=== PATIENT | male | born 1950 ===

== ENCOUNTER 2019-03-11 15:30 | Inpatient (IN) | payer MEDICARE ==
[~2019-03-11] VITALS: Ht 170.2 cm; Wt 68.0 kg
[2019-03-11 17:10] VITALS: BP 124/79
[2019-03-11] MEDS ORDERED: DEXTROSE 50%-WATER 25 GM/50 ML SYRINGE IVP PRN (17:30)
[2019-03-11] MEDS ORDERED: GLUCAGON,HUMAN RECOMBINANT 1 MG VIAL SQ PRN (18:30)
[2019-03-11] MEDS ORDERED: MELATONIN 3 MG TABLET PO PRN (18:30)
[2019-03-11] MEDS ORDERED: PNEUMOCOCCAL VACCINE POLYVALENT 0.5 ML VIAL [PPSV23] IM ONE (20:45)
[2019-03-11 21:00] VITALS: BP 140/75
[2019-03-11] MEDS: PANTOPRAZOLE SODIUM 40 MG DR TABLET PO SCH (21:06)
[2019-03-11] MEDS: DOCUSATE SODIUM 100 MG CAPSULE PO SCH (21:06)
[2019-03-11] MEDS: SENNA 187 MG TABLET PO SCH (21:06)
[2019-03-11] MEDS: LevETIRAcetam 500 MG TABLET PO SCH (21:06)
[2019-03-11] MEDS: TraMADol HCL 50 MG TABLET PO PRN (21:06)
[2019-03-11] MEDS: INSULIN GLARGINE,HUM.REC.ANLOG 100 UNITS/ML SQ SCH (21:22)
[2019-03-11] MEDS: ENOXAPARIN SODIUM 80 MG/0.8 ML PF SYRINGE SQ SCH (21:23)
[2019-03-11] MEDS: METOPROLOL TARTRATE 50 MG TABLET PO SCH (21:23)
[2019-03-11 22:26] LABS: GLUCOMETER DEV NAME(LOC) 2WR.2; GLUCOSE,POINT OF CARE 125 MG/DL (70-110)
[2019-03-11 23:43] LABS: APPEARANCE,URINE CLOUDY (CLEAR); BILIRUBIN,URINE NEGATIVE (NEGATIVE); GLUCOSE, URINE (UA) NEGATIVE (NEGATIVE); KETONES,URINE NEGATIVE (NEGATIVE); LEUKOCYTE ESTERASE ,URINE MODERATE (NEGATIVE); NITRATE,URINE POSITIVE (NEGATIVE); OCCULT BLOOD,URINE TRACE (NEGATIVE); PH,URINE 5.5 (5.0-8.0); PROTEIN,URINE NEGATIVE (NEGATIVE); UROBILINOGEN,URINE 0.2 mg/dL (<=1.0)
[2019-03-11 23:58] LABS: BACTERIA,URINE Moderate /HPF (None Seen); RBC,URINE 0-2 /HPF (0-2); SQUAMOUS EPITHELIAL CELL,UR None Seen /LPF (None Seen); WBC,URINE 26-50 /HPF (0-5)
[2019-03-12 04:30] VITALS: BP 111/69
[2019-03-12 05:37] LABS: GLUCOMETER DEV NAME(LOC) 2WR.1B; GLUCOSE,POINT OF CARE 110 MG/DL (70-110)
[2019-03-12 06:36] LABS: GLUCOMETER DEV NAME(LOC) 2WR.1B; GLUCOSE,POINT OF CARE 73 MG/DL (70-110)
[2019-03-12 07:13] LABS: BASOPHILS % (AUTO) 1.3 % (0.0-2.0); EOSINOPHILS % (AUTO) 1.5 % (1.0-6.0); HEMATOCRIT 31.4 % (41-53); HEMOGLOBIN 10.4 g/dL (13.5-17.5); LYMPHOCYTES # (AUTO) 2.7 K/uL (1.0-4.8); LYMPHOCYTES % (AUTO) 33.6 % (22.0-44.0); MEAN CORPUSCULAR HEMOGLOBIN 30.9 pg (26.0-34.0); MEAN CORPUSCULAR VOLUME 94 fL (80-100); MONOCYTES # (AUTO) 0.8 K/uL (0.1-1.0); MONOCYTES % (AUTO) 9.2 % (2.0-9.0); NEUTROPHILS # (AUTO) 4.4 K/uL (1.8-7.7); NEUTROPHILS % (AUTO) 54.4 % (40.0-70.0); PLATELET COUNT (AUTO) 409 K/uL (150-450); RED BLOOD CELL COUNT(AUTO) 3.36 MIL/uL (4.50-5.90); RED CELL DISTRIBUTION WIDTH 15.5 % (11.5-14.5)
[2019-03-12 07:36] LABS: ALBUMIN 2.4 g/dL (3.4-5.0); BILIRUBIN,TOTAL 0.6 mg/dL (0.1-1.0); CALCIUM, TOTAL 9.6 mg/dL (8.8-10.5); CREATININE 1.46 mg/dL (0.60-1.30); POTASSIUM 4.2 mmol/L (3.5-5.1); TOTAL PROTEIN, SERUM 7.5 g/dL (6.4-8.2)
[2019-03-12] MEDS: ACETAMINOPHEN 325 MG TABLET PO PRN (07:46)
[2019-03-12 08:05] VITALS: BP 130/74
[2019-03-12] MEDS: ASPIRIN 81 MG EC TABLET PO SCH (09:08)
[2019-03-12] MEDS: ENOXAPARIN SODIUM 80 MG/0.8 ML PF SYRINGE SQ SCH ×2 (09:08→21:03)
[2019-03-12] MEDS: LevETIRAcetam 500 MG TABLET PO SCH ×2 (09:08→21:02)
[2019-03-12] MEDS: AmLODIPine BESYLATE 10 MG TABLET PO SCH (09:09)
[2019-03-12] MEDS: METOPROLOL TARTRATE 50 MG TABLET PO SCH ×2 (09:09→21:02)
[2019-03-12] MEDS: DOCUSATE SODIUM 100 MG CAPSULE PO SCH ×2 (09:09→21:02)
[2019-03-12] MEDS ORDERED: ENOX60DI8 SQ (10:06)
[2019-03-12] MEDS ORDERED: INSU100V SQ (10:06)
[2019-03-12] MEDS ORDERED: LEVE500T8 PO (10:06)
[2019-03-12] MEDS ORDERED: PANT40TA25 PO (10:06)
[2019-03-12] MEDS ORDERED: AMLO10TA7 PO (10:06)
[2019-03-12] MEDS ORDERED: METO50 PO (10:06)
[2019-03-12 10:10] LABS: HEMOGLOBIN A1C 6.4 % (4.5-6.2)
[2019-03-12] MEDS: TraMADol HCL 50 MG TABLET PO PRN (13:45)
[2019-03-12] MEDS ORDERED: ChlorproMAZINE HCL 25 MG TABLET PO PRN (15:30)
[2019-03-12] MEDS ORDERED: HYDROCODONE/ACETAMINOPHEN 5-325 MG TABLET PO PRN (15:45)
[2019-03-12 15:56] VITALS: BP 112/68
[2019-03-12] MEDS: TraMADol HCL 50 MG TABLET PO SCH ×2 (16:00→21:03)
[2019-03-12] MEDS: HYDROCODONE/ACETAMINOPHEN 10-325 MG TABLET PO PRN (16:16)
[2019-03-12] MEDS: SENNA 187 MG TABLET PO SCH (21:02)
[2019-03-12] MEDS: TAMSULOSIN HCL 0.4 MG CAPSULE PO SCH (21:02)
[2019-03-12] MEDS: BETHANECHOL CHLORIDE 25 MG TABLET PO SCH (21:03)
[2019-03-12] MEDS: PANTOPRAZOLE SODIUM 40 MG DR TABLET PO SCH (21:03)
[2019-03-12 21:04] VITALS: BP 106/65
[2019-03-12] MEDS: INSULIN GLARGINE,HUM.REC.ANLOG 100 UNITS/ML SQ SCH (21:23)
[2019-03-13] VITALS: BP 116/68
[2019-03-13 02:21] LABS: GLUCOMETER DEV NAME(LOC) 2WR.2; GLUCOSE,POINT OF CARE 188 MG/DL (70-110)
[2019-03-13 02:21] LABS: GLUCOMETER DEV NAME(LOC) 2WR.2; GLUCOSE,POINT OF CARE 109 MG/DL (70-110)
[2019-03-13 05:20] LABS: GLUCOMETER DEV NAME(LOC) 2WR.1B; GLUCOSE,POINT OF CARE 88 MG/DL (70-110)
[2019-03-13 06:41] LABS: GLUCOMETER DEV NAME(LOC) 2WR.2; GLUCOSE,POINT OF CARE 78 MG/DL (70-110)
[2019-03-13] MEDS: ENOXAPARIN SODIUM 80 MG/0.8 ML PF SYRINGE SQ SCH ×2 (08:39→21:03)
[2019-03-13 08:40] VITALS: BP 110/68
[2019-03-13] MEDS: AmLODIPine BESYLATE 10 MG TABLET PO SCH (08:40)
[2019-03-13] MEDS: ASPIRIN 81 MG EC TABLET PO SCH (08:41)
[2019-03-13] MEDS: BETHANECHOL CHLORIDE 25 MG TABLET PO SCH ×2 (08:41→20:49)
[2019-03-13] MEDS: DOCUSATE SODIUM 100 MG CAPSULE PO SCH ×2 (08:41→20:49)
[2019-03-13] MEDS: TraMADol HCL 50 MG TABLET PO SCH ×3 (08:41→20:50)
[2019-03-13] MEDS: LevETIRAcetam 500 MG TABLET PO SCH ×2 (08:41→20:49)
[2019-03-13] MEDS: METOPROLOL TARTRATE 50 MG TABLET PO SCH ×2 (08:42→20:50)
[2019-03-13] MEDS: HYDROCODONE/ACETAMINOPHEN 10-325 MG TABLET PO PRN (14:23)
[2019-03-13] MEDS ORDERED: CefTRIAXone 1 GM/DEXTROSE 50 ML IV SCH (15:00)
[2019-03-13 15:30] VITALS: BP 110/68
[2019-03-13] MEDS ORDERED: SODIUM CHLORIDE 0.9% 100 ML ONE (16:31)
[2019-03-13] MEDS: PANTOPRAZOLE SODIUM 40 MG DR TABLET PO SCH (20:49)
[2019-03-13] MEDS: TAMSULOSIN HCL 0.4 MG CAPSULE PO SCH (20:49)
[2019-03-13] MEDS: SENNA 187 MG TABLET PO SCH (20:50)
[2019-03-13] MEDS: INSULIN GLARGINE,HUM.REC.ANLOG 100 UNITS/ML SQ SCH (21:06)
[2019-03-13] MEDS: INSULIN LISPRO 100 UNITS/ML SQ PRN (21:07)
[2019-03-13 23:56] VITALS: BP 99/61
[2019-03-14 04:30] VITALS: BP 110/62
[2019-03-14 05:27] LABS: GLUCOMETER DEV NAME(LOC) 2WR.1B; GLUCOSE,POINT OF CARE 179 MG/DL (70-110)
[2019-03-14 05:27] LABS: GLUCOMETER DEV NAME(LOC) 2WR.1B; GLUCOSE,POINT OF CARE 116 MG/DL (70-110)
[2019-03-14 05:27] LABS: GLUCOMETER DEV NAME(LOC) 2WR.1B; GLUCOSE,POINT OF CARE 113 MG/DL (70-110)
[2019-03-14 08:10] VITALS: BP 115/66
[2019-03-14] MEDS: LevETIRAcetam 500 MG TABLET PO SCH ×2 (08:15→21:13)
[2019-03-14] MEDS: MULTIVITAMINS WITH MINERALS, THERAPEUTIC TABLET PO SCH (08:15)
[2019-03-14] MEDS: TraMADol HCL 50 MG TABLET PO SCH (08:16)
[2019-03-14] MEDS: DOCUSATE SODIUM 100 MG CAPSULE PO SCH ×2 (08:16→21:13)
[2019-03-14] MEDS: ASPIRIN 81 MG EC TABLET PO SCH (08:16)
[2019-03-14] MEDS: AmLODIPine BESYLATE 10 MG TABLET PO SCH (08:16)
[2019-03-14] MEDS: METOPROLOL TARTRATE 50 MG TABLET PO SCH ×2 (08:16→21:13)
[2019-03-14] MEDS: BETHANECHOL CHLORIDE 25 MG TABLET PO SCH ×2 (08:17→21:17)
[2019-03-14] MEDS: ENOXAPARIN SODIUM 80 MG/0.8 ML PF SYRINGE SQ SCH (08:17)
[2019-03-14] MEDS: 0.9% SODIUM CHLORIDE 10 ML SYRINGE IVP SCH ×2 (08:33→15:50)
[2019-03-14] MEDS: HYDROCODONE/ACETAMINOPHEN 10-325 MG TABLET PO PRN (10:35)
[2019-03-14] MEDS: ACETAMINOPHEN 325 MG TABLET PO PRN (13:44)
[2019-03-14] MEDS: ACETAMINOPHEN 325 MG TABLET PO SCH ×2 (15:49→21:13)
[2019-03-14] MEDS: CefoTEtan DISOD 2 GM/DEXTROSE 50 ML IV SCH (15:50)
[2019-03-14 17:18] VITALS: BP 112/69
[2019-03-14 19:25] LABS: GLUCOMETER DEV NAME(LOC) 2WR.2; GLUCOSE,POINT OF CARE 98 MG/DL (70-110)
[2019-03-14 19:25] LABS: GLUCOMETER DEV NAME(LOC) 2WR.2; GLUCOSE,POINT OF CARE 85 MG/DL (70-110)
[2019-03-14 19:25] LABS: GLUCOMETER DEV NAME(LOC) 2WR.2; GLUCOSE,POINT OF CARE 129 MG/DL (70-110)
[2019-03-14] MEDS ORDERED: ROSUVASTATIN CALCIUM 10 MG TABLET PO SCH (21:00)
[2019-03-14] MEDS: SENNA 187 MG TABLET PO SCH (21:13)
[2019-03-14] MEDS: PANTOPRAZOLE SODIUM 40 MG DR TABLET PO SCH (21:13)
[2019-03-14] MEDS: TAMSULOSIN HCL 0.4 MG CAPSULE PO SCH (21:13)
[2019-03-14] MEDS: APIXABAN 5 MG TABLET PO SCH (21:14)
[2019-03-14] MEDS: INSULIN LISPRO 100 UNITS/ML SQ PRN (21:24)
[2019-03-14] MEDS: INSULIN GLARGINE,HUM.REC.ANLOG 100 UNITS/ML SQ SCH (21:25)
[2019-03-15] VITALS: BP 107/56
[2019-03-15 05:51] LABS: GLUCOMETER DEV NAME(LOC) 2WR.1B; GLUCOSE,POINT OF CARE 166 MG/DL (70-110)
[2019-03-15 06:31] LABS: GLUCOMETER DEV NAME(LOC) 2WR.2; GLUCOSE,POINT OF CARE 68 MG/DL (70-110)
[2019-03-15 07:28] LABS: % IRON SATURATION 13.3 % (30-44)
[2019-03-15 07:30] VITALS: BP 120/72
[2019-03-15 07:40] LABS: ALBUMIN 2.5 g/dL (3.4-5.0); BILIRUBIN,TOTAL 0.5 mg/dL (0.1-1.0); CALCIUM, TOTAL 9.2 mg/dL (8.8-10.5); CHOL/HDL RATIO 6.4 (4.2-7.3); CREATININE 1.93 mg/dL (0.60-1.30); POTASSIUM 4.1 mmol/L (3.5-5.1); TOTAL PROTEIN, SERUM 7.4 g/dL (6.4-8.2)
[2019-03-15] MEDS: MULTIVITAMINS WITH MINERALS, THERAPEUTIC TABLET PO SCH (07:47)
[2019-03-15] MEDS: APIXABAN 5 MG TABLET PO SCH (07:47)
[2019-03-15] MEDS: DOCUSATE SODIUM 100 MG CAPSULE PO SCH ×2 (07:47→20:22)
[2019-03-15] MEDS: ACETAMINOPHEN 325 MG TABLET PO SCH ×3 (07:47→20:23)
[2019-03-15] MEDS: METOPROLOL TARTRATE 50 MG TABLET PO SCH ×2 (07:47→20:23)
[2019-03-15] MEDS: AmLODIPine BESYLATE 10 MG TABLET PO SCH (07:47)
[2019-03-15] MEDS: BETHANECHOL CHLORIDE 25 MG TABLET PO SCH ×2 (07:47→20:22)
[2019-03-15] MEDS: LevETIRAcetam 500 MG TABLET PO SCH ×2 (07:47→20:22)
[2019-03-15] MEDS: ASPIRIN 81 MG EC TABLET PO SCH (07:47)
[2019-03-15] MEDS: 0.9% SODIUM CHLORIDE 10 ML SYRINGE IVP SCH ×3 (07:48→15:27)
[2019-03-15] MEDS ORDERED: ENOX80DI9 SQ (11:29)
[2019-03-15] MEDS: FERROUS SULFATE 325 MG EC TABLET PO SCH (14:56)
[2019-03-15] MEDS: CefoTEtan DISOD 2 GM/DEXTROSE 50 ML IV SCH (15:26)
[2019-03-15 16:00] VITALS: BP 134/77
[2019-03-15] MEDS: DOCUSATE SODIUM 283 MG/5 ML MINI-ENEMA PR SCH (16:37)
[2019-03-15 16:47] LABS: GLUCOMETER DEV NAME(LOC) 2WR.2; GLUCOSE,POINT OF CARE 82 MG/DL (70-110)
[2019-03-15 16:47] LABS: GLUCOMETER DEV NAME(LOC) 2WR.2; GLUCOSE,POINT OF CARE 100 MG/DL (70-110)
[2019-03-15] MEDS: FINASTERIDE 5 MG TABLET PO SCH (18:17)
[2019-03-15] MEDS: INSULIN LISPRO 100 UNITS/ML SQ PRN ×2 (18:21→20:58)
[2019-03-15 18:26] LABS: GLUCOMETER DEV NAME(LOC) 2WR.1B; GLUCOSE,POINT OF CARE 146 MG/DL (70-110)
[2019-03-15] MEDS: PANTOPRAZOLE SODIUM 40 MG DR TABLET PO SCH (20:21)
[2019-03-15] MEDS: APIXABAN 2.5 MG TABLET PO SCH (20:22)
[2019-03-15] MEDS: TAMSULOSIN HCL 0.4 MG CAPSULE PO SCH (20:22)
[2019-03-15] MEDS: SENNA 187 MG TABLET PO SCH (20:22)
[2019-03-15] MEDS: ROSUVASTATIN CALCIUM 10 MG TABLET PO SCH (20:23)
[2019-03-15 20:46] LABS: GLUCOMETER DEV NAME(LOC) 2WR.2; GLUCOSE,POINT OF CARE 164 MG/DL (70-110)
[2019-03-15] MEDS: INSULIN GLARGINE,HUM.REC.ANLOG 100 UNITS/ML SQ SCH (21:01)
[2019-03-16 00:15] VITALS: BP 127/74
[2019-03-16] MEDS: 0.9% SODIUM CHLORIDE 10 ML SYRINGE IVP SCH ×4 (04:08→23:40)
[2019-03-16 05:37] LABS: APPEARANCE,URINE CLOUDY (CLEAR); BILIRUBIN,URINE NEGATIVE (NEGATIVE); GLUCOSE, URINE (UA) NEGATIVE (NEGATIVE); KETONES,URINE NEGATIVE (NEGATIVE); LEUKOCYTE ESTERASE ,URINE SMALL (NEGATIVE); NITRATE,URINE NEGATIVE (NEGATIVE); OCCULT BLOOD,URINE NEGATIVE (NEGATIVE); PH,URINE 5.5 (5.0-8.0); PROTEIN,URINE NEGATIVE (NEGATIVE); UROBILINOGEN,URINE 0.2 mg/dL (<=1.0)
[2019-03-16 05:38] LABS: BACTERIA,URINE None Seen /HPF (None Seen); RBC,URINE 0-2 /HPF (0-2)
[2019-03-16 05:39] LABS: SQUAMOUS EPITHELIAL CELL,UR Rare /LPF (None Seen)
[2019-03-16 06:11] LABS: GLUCOMETER DEV NAME(LOC) 2WR.2; GLUCOSE,POINT OF CARE 107 MG/DL (70-110)
[2019-03-16 06:34] LABS: ALBUMIN 2.4 g/dL (3.4-5.0); BILIRUBIN,TOTAL 0.4 mg/dL (0.1-1.0); CALCIUM, TOTAL 9.4 mg/dL (8.8-10.5); CREATININE 1.7 mg/dL (0.60-1.30); TOTAL PROTEIN, SERUM 7.5 g/dL (6.4-8.2)
[2019-03-16 07:30] VITALS: BP 130/73
[2019-03-16] MEDS: FERROUS SULFATE 325 MG EC TABLET PO SCH (07:31)
[2019-03-16] MEDS: ASPIRIN 81 MG EC TABLET PO SCH (07:32)
[2019-03-16] MEDS: DOCUSATE SODIUM 100 MG CAPSULE PO SCH ×2 (07:48→20:59)
[2019-03-16] MEDS: BETHANECHOL CHLORIDE 25 MG TABLET PO SCH ×2 (07:49→20:59)
[2019-03-16] MEDS: ACETAMINOPHEN 325 MG TABLET PO SCH ×3 (07:49→20:59)
[2019-03-16] MEDS: MULTIVITAMINS WITH MINERALS, THERAPEUTIC TABLET PO SCH (07:49)
[2019-03-16] MEDS: METOPROLOL TARTRATE 50 MG TABLET PO SCH ×2 (07:49→20:59)
[2019-03-16] MEDS: APIXABAN 2.5 MG TABLET PO SCH ×2 (07:49→20:59)
[2019-03-16] MEDS: AmLODIPine BESYLATE 10 MG TABLET PO SCH (07:49)
[2019-03-16] MEDS: LevETIRAcetam 500 MG TABLET PO SCH ×2 (07:49→20:59)
[2019-03-16] MEDS: FINASTERIDE 5 MG TABLET PO SCH (07:49)
[2019-03-16] MEDS: INSULIN LISPRO 100 UNITS/ML SQ PRN ×2 (13:19→21:14)
[2019-03-16] MEDS ORDERED: SODIUM CHLORIDE 0.9% 100 ML ONE (14:21)
[2019-03-16] MEDS: CefoTEtan DISOD 2 GM/DEXTROSE 50 ML IV SCH (14:32)
[2019-03-16 16:41] VITALS: BP 124/71
[2019-03-16] MEDS: DOCUSATE SODIUM 283 MG/5 ML MINI-ENEMA PR SCH (17:30)
[2019-03-16 18:21] LABS: GLUCOMETER DEV NAME(LOC) 2WR.2; GLUCOSE,POINT OF CARE 95 MG/DL (70-110)
[2019-03-16 20:57] VITALS: BP 127/79
[2019-03-16] MEDS: PANTOPRAZOLE SODIUM 40 MG DR TABLET PO SCH (20:59)
[2019-03-16] MEDS: ROSUVASTATIN CALCIUM 10 MG TABLET PO SCH (20:59)
[2019-03-16] MEDS: SENNA 187 MG TABLET PO SCH (20:59)
[2019-03-16] MEDS: TAMSULOSIN HCL 0.4 MG CAPSULE PO SCH (20:59)
[2019-03-16] MEDS: INSULIN GLARGINE,HUM.REC.ANLOG 100 UNITS/ML SQ SCH (21:13)
[2019-03-16 21:26] LABS: GLUCOMETER DEV NAME(LOC) 2WR.1B; GLUCOSE,POINT OF CARE 148 MG/DL (70-110)
[2019-03-16 21:26] LABS: GLUCOMETER DEV NAME(LOC) 2WR.1B; GLUCOSE,POINT OF CARE 157 MG/DL (70-110)
[2019-03-17 03:45] VITALS: BP 103/68
[2019-03-17] MEDS: ACETAMINOPHEN 325 MG TABLET PO PRN (04:20)
[2019-03-17 06:06] LABS: GLUCOMETER DEV NAME(LOC) 2WR.2; GLUCOSE,POINT OF CARE 96 MG/DL (70-110)
[2019-03-17 07:35] VITALS: BP 114/69
[2019-03-17] MEDS: FERROUS SULFATE 325 MG EC TABLET PO SCH (07:38)
[2019-03-17] MEDS: ASPIRIN 81 MG EC TABLET PO SCH (07:38)
[2019-03-17] MEDS: 0.9% SODIUM CHLORIDE 10 ML SYRINGE IVP SCH ×2 (07:38→15:42)
[2019-03-17] MEDS: LevETIRAcetam 500 MG TABLET PO SCH ×2 (08:56→20:24)
[2019-03-17] MEDS: METOPROLOL TARTRATE 50 MG TABLET PO SCH ×2 (08:56→20:24)
[2019-03-17] MEDS: BETHANECHOL CHLORIDE 25 MG TABLET PO SCH ×2 (08:56→20:25)
[2019-03-17] MEDS: MULTIVITAMINS WITH MINERALS, THERAPEUTIC TABLET PO SCH (08:56)
[2019-03-17] MEDS: DOCUSATE SODIUM 100 MG CAPSULE PO SCH ×2 (08:56→20:23)
[2019-03-17] MEDS: FINASTERIDE 5 MG TABLET PO SCH (08:56)
[2019-03-17] MEDS: AmLODIPine BESYLATE 10 MG TABLET PO SCH (08:57)
[2019-03-17] MEDS: ACETAMINOPHEN 325 MG TABLET PO SCH ×3 (08:57→21:48)
[2019-03-17] MEDS: APIXABAN 2.5 MG TABLET PO SCH ×2 (08:58→20:24)
[2019-03-17 12:37] LABS: GLUCOMETER DEV NAME(LOC) 2WR.2; GLUCOSE,POINT OF CARE 127 MG/DL (70-110)
[2019-03-17] MEDS: LACTOBAC ACID/BULG/BIFID/THERM TABLET PO SCH ×3 (13:00→20:23)
[2019-03-17] MEDS ORDERED: SODIUM CHLORIDE 0.9% 100 ML ONE (14:47)
[2019-03-17] MEDS: CefoTEtan DISOD 2 GM/DEXTROSE 50 ML IV SCH (15:42)
[2019-03-17 16:16] VITALS: BP 100/66
[2019-03-17] MEDS: DOCUSATE SODIUM 283 MG/5 ML MINI-ENEMA PR SCH (17:30)
[2019-03-17] MEDS: INSULIN LISPRO 100 UNITS/ML SQ PRN (17:50)
[2019-03-17 20:19] VITALS: BP 113/66
[2019-03-17] MEDS: ROSUVASTATIN CALCIUM 10 MG TABLET PO SCH (20:24)
[2019-03-17] MEDS: TAMSULOSIN HCL 0.4 MG CAPSULE PO SCH (20:24)
[2019-03-17] MEDS: PANTOPRAZOLE SODIUM 40 MG DR TABLET PO SCH (20:25)
[2019-03-17] MEDS: SENNA 187 MG TABLET PO SCH (20:25)
[2019-03-17] MEDS: INSULIN GLARGINE,HUM.REC.ANLOG 100 UNITS/ML SQ SCH (20:35)
[2019-03-17 23:36] LABS: GLUCOMETER DEV NAME(LOC) 2WR.2; GLUCOSE,POINT OF CARE 118 MG/DL (70-110)
[2019-03-18] VITALS: BP 107/62
[2019-03-18] MEDS: 0.9% SODIUM CHLORIDE 10 ML SYRINGE IVP SCH ×4 (00:12→23:18)
[2019-03-18 06:21] LABS: GLUCOMETER DEV NAME(LOC) 2WR.2; GLUCOSE,POINT OF CARE 86 MG/DL (70-110)
[2019-03-18 06:31] LABS: GLUCOMETER DEV NAME(LOC) 2WR.1B; GLUCOSE,POINT OF CARE 141 MG/DL (70-110)
[2019-03-18 08:00] VITALS: BP 109/63
[2019-03-18] MEDS: FINASTERIDE 5 MG TABLET PO SCH (08:52)
[2019-03-18] MEDS: ACETAMINOPHEN 325 MG TABLET PO SCH ×3 (08:52→22:02)
[2019-03-18] MEDS: BETHANECHOL CHLORIDE 25 MG TABLET PO SCH ×2 (08:53→20:27)
[2019-03-18] MEDS: MULTIVITAMINS WITH MINERALS, THERAPEUTIC TABLET PO SCH (08:53)
[2019-03-18] MEDS: METOPROLOL TARTRATE 50 MG TABLET PO SCH ×2 (08:53→20:27)
[2019-03-18] MEDS: FERROUS SULFATE 325 MG EC TABLET PO SCH (08:53)
[2019-03-18] MEDS: ASPIRIN 81 MG EC TABLET PO SCH (08:53)
[2019-03-18] MEDS: LevETIRAcetam 500 MG TABLET PO SCH ×2 (08:53→20:26)
[2019-03-18] MEDS: APIXABAN 2.5 MG TABLET PO SCH ×2 (08:53→20:27)
[2019-03-18] MEDS: AmLODIPine BESYLATE 10 MG TABLET PO SCH (08:53)
[2019-03-18] MEDS: DOCUSATE SODIUM 100 MG CAPSULE PO SCH ×2 (08:53→20:27)
[2019-03-18] MEDS: LACTOBAC ACID/BULG/BIFID/THERM TABLET PO SCH ×4 (08:53→20:27)
[2019-03-18 15:15] LABS: GLUCOMETER DEV NAME(LOC) 2WR.2; GLUCOSE,POINT OF CARE 110 MG/DL (70-110)
[2019-03-18] MEDS: CefoTEtan DISOD 2 GM/DEXTROSE 50 ML IV SCH (15:47)
[2019-03-18] MEDS ORDERED: SODIUM CHLORIDE 0.9% 250 ML IV ONE (15:54)
[2019-03-18] MEDS: DOCUSATE SODIUM 283 MG/5 ML MINI-ENEMA PR SCH (17:30)
[2019-03-18 19:05] VITALS: BP 116/73
[2019-03-18 19:06] LABS: GLUCOMETER DEV NAME(LOC) 2WR.2; GLUCOSE,POINT OF CARE 138 MG/DL (70-110)
[2019-03-18] MEDS: TAMSULOSIN HCL 0.4 MG CAPSULE PO SCH (20:27)
[2019-03-18] MEDS: ROSUVASTATIN CALCIUM 10 MG TABLET PO SCH (20:27)
[2019-03-18] MEDS: SENNA 187 MG TABLET PO SCH (20:27)
[2019-03-18] MEDS: PANTOPRAZOLE SODIUM 40 MG DR TABLET PO SCH (20:27)
[2019-03-18 20:29] VITALS: BP 120/68
[2019-03-18] MEDS: INSULIN GLARGINE,HUM.REC.ANLOG 100 UNITS/ML SQ SCH (20:37)
[2019-03-18] MEDS: INSULIN LISPRO 100 UNITS/ML SQ PRN (20:38)
[2019-03-18 21:25] LABS: GLUCOMETER DEV NAME(LOC) 2WR.2; GLUCOSE,POINT OF CARE 150 MG/DL (70-110)
[2019-03-19] VITALS: BP 102/55
[2019-03-19 06:12] LABS: BASOPHILS % (AUTO) 1.8 % (0.0-2.0); HEMATOCRIT 30.1 % (41-53); HEMOGLOBIN 9.9 g/dL (13.5-17.5); LYMPHOCYTES # (AUTO) 2.6 K/uL (1.0-4.8); LYMPHOCYTES % (AUTO) 36.3 % (22.0-44.0); MEAN CORPUSCULAR HEMOGLOBIN 30.4 pg (26.0-34.0); MEAN CORPUSCULAR HGB CONC 32.8 G/dL (31.0-37.0); MEAN CORPUSCULAR VOLUME 93 fL (80-100); MONOCYTES # (AUTO) 0.6 K/uL (0.1-1.0); MONOCYTES % (AUTO) 8.1 % (2.0-9.0); NEUTROPHILS # (AUTO) 3.6 K/uL (1.8-7.7); NEUTROPHILS % (AUTO) 49.8 % (40.0-70.0); PLATELET COUNT (AUTO) 485 K/uL (150-450); RED BLOOD CELL COUNT(AUTO) 3.25 MIL/uL (4.50-5.90); RED CELL DISTRIBUTION WIDTH 15.3 % (11.5-14.5)
[2019-03-19 06:21] LABS: GLUCOMETER DEV NAME(LOC) 2WR.1B; GLUCOSE,POINT OF CARE 86 MG/DL (70-110)
[2019-03-19 06:24] LABS: CALCIUM, TOTAL 8.7 mg/dL (8.8-10.5); CREATININE 1.46 mg/dL (0.60-1.30); POTASSIUM 3.9 mmol/L (3.5-5.1)
[2019-03-19 07:25] VITALS: BP 124/65
[2019-03-19] MEDS: APIXABAN 2.5 MG TABLET PO SCH ×2 (08:09→20:57)
[2019-03-19] MEDS: FINASTERIDE 5 MG TABLET PO SCH (08:09)
[2019-03-19] MEDS: ASPIRIN 81 MG EC TABLET PO SCH (08:09)
[2019-03-19] MEDS: MULTIVITAMINS WITH MINERALS, THERAPEUTIC TABLET PO SCH (08:09)
[2019-03-19] MEDS: LACTOBAC ACID/BULG/BIFID/THERM TABLET PO SCH ×4 (08:09→20:57)
[2019-03-19] MEDS: BETHANECHOL CHLORIDE 25 MG TABLET PO SCH ×2 (08:09→20:58)
[2019-03-19] MEDS: DOCUSATE SODIUM 100 MG CAPSULE PO SCH ×2 (08:09→20:57)
[2019-03-19] MEDS: AmLODIPine BESYLATE 10 MG TABLET PO SCH (08:10)
[2019-03-19] MEDS: METOPROLOL TARTRATE 50 MG TABLET PO SCH ×2 (08:10→21:00)
[2019-03-19] MEDS: 0.9% SODIUM CHLORIDE 10 ML SYRINGE IVP SCH ×3 (08:10→22:40)
[2019-03-19] MEDS: FERROUS SULFATE 325 MG EC TABLET PO SCH (08:10)
[2019-03-19] MEDS: LevETIRAcetam 500 MG TABLET PO SCH ×2 (08:10→21:00)
[2019-03-19] MEDS: ACETAMINOPHEN 325 MG TABLET PO SCH ×3 (10:14→21:01)
[2019-03-19] MEDS: CefoTEtan DISOD 2 GM/DEXTROSE 50 ML IV SCH (15:39)
[2019-03-19 16:42] VITALS: BP 118/68
[2019-03-19 17:06] LABS: GLUCOMETER DEV NAME(LOC) 2WR.1B; GLUCOSE,POINT OF CARE 110 MG/DL (70-110)
[2019-03-19] MEDS: DOCUSATE SODIUM 283 MG/5 ML MINI-ENEMA PR SCH (17:30)
[2019-03-19 17:51] LABS: GLUCOMETER DEV NAME(LOC) 2WR.1B; GLUCOSE,POINT OF CARE 159 MG/DL (70-110)
[2019-03-19] MEDS: INSULIN LISPRO 100 UNITS/ML SQ PRN (18:12)
[2019-03-19 20:52] VITALS: BP 121/72
[2019-03-19] MEDS: ROSUVASTATIN CALCIUM 10 MG TABLET PO SCH (20:58)
[2019-03-19] MEDS: SENNA 187 MG TABLET PO SCH (21:00)
[2019-03-19] MEDS: TAMSULOSIN HCL 0.4 MG CAPSULE PO SCH (21:00)
[2019-03-19] MEDS: PANTOPRAZOLE SODIUM 40 MG DR TABLET PO SCH (21:00)
[2019-03-19] MEDS: INSULIN GLARGINE,HUM.REC.ANLOG 100 UNITS/ML SQ SCH (21:11)
[2019-03-19 21:26] LABS: GLUCOMETER DEV NAME(LOC) 2WR.1B; GLUCOSE,POINT OF CARE 128 MG/DL (70-110)
[2019-03-20 01:21] VITALS: BP 104/61
[2019-03-20] MEDS ORDERED: APIX2.5T PO (05:32)
[2019-03-20] MEDS ORDERED: ROSU10TA22 PO (05:32)
[2019-03-20] MEDS ORDERED: PANT40TA25 PO (05:32)
[2019-03-20] MEDS ORDERED: LEVE500T53 PO (05:32)
[2019-03-20] MEDS ORDERED: ASPI81 PO (05:32)
[2019-03-20] MEDS ORDERED: MULT-1239 PO (05:32)
[2019-03-20] MEDS ORDERED: METO50 PO (05:32)
[2019-03-20] MEDS ORDERED: FINA5TAB41 PO (05:32)
[2019-03-20] MEDS ORDERED: BACI1TAB3 PO (05:32)
[2019-03-20] MEDS ORDERED: FERR-89 PO (05:32)
[2019-03-20] MEDS ORDERED: BETH25 PO (05:32)
[2019-03-20] MEDS ORDERED: TAMS-1 PO (05:32)
[2019-03-20 06:16] LABS: GLUCOMETER DEV NAME(LOC) 2WR.2; GLUCOSE,POINT OF CARE 84 MG/DL (70-110)
[2019-03-20 07:55] VITALS: BP 114/55
[2019-03-20] MEDS: FINASTERIDE 5 MG TABLET PO SCH (08:13)
[2019-03-20] MEDS: APIXABAN 2.5 MG TABLET PO SCH ×2 (08:13→21:10)
[2019-03-20] MEDS: MULTIVITAMINS WITH MINERALS, THERAPEUTIC TABLET PO SCH (08:13)
[2019-03-20] MEDS: LACTOBAC ACID/BULG/BIFID/THERM TABLET PO SCH ×4 (08:13→21:11)
[2019-03-20] MEDS: LevETIRAcetam 500 MG TABLET PO SCH ×2 (08:14→21:10)
[2019-03-20] MEDS: AmLODIPine BESYLATE 10 MG TABLET PO SCH (08:14)
[2019-03-20] MEDS: DOCUSATE SODIUM 100 MG CAPSULE PO SCH ×2 (08:14→21:11)
[2019-03-20] MEDS: ACETAMINOPHEN 325 MG TABLET PO SCH ×3 (08:14→21:11)
[2019-03-20] MEDS: 0.9% SODIUM CHLORIDE 10 ML SYRINGE IVP SCH ×3 (08:15→23:15)
[2019-03-20] MEDS: ASPIRIN 81 MG EC TABLET PO SCH (08:16)
[2019-03-20] MEDS: METOPROLOL TARTRATE 50 MG TABLET PO SCH ×2 (08:18→21:11)
[2019-03-20] MEDS: FERROUS SULFATE 325 MG EC TABLET PO SCH (08:18)
[2019-03-20] MEDS: BETHANECHOL CHLORIDE 25 MG TABLET PO SCH ×2 (08:18→21:10)
[2019-03-20 16:29] VITALS: BP 128/70
[2019-03-20] MEDS ORDERED: SODIUM CHLORIDE 0.9% 100 ML ONE (16:31)
[2019-03-20] MEDS: CefoTEtan DISOD 2 GM/DEXTROSE 50 ML IV SCH (16:37)
[2019-03-20 16:55] LABS: GLUCOMETER DEV NAME(LOC) 2WR.1B; GLUCOSE,POINT OF CARE 126 MG/DL (70-110)
[2019-03-20 17:15] LABS: GLUCOMETER DEV NAME(LOC) 2WR.1B; GLUCOSE,POINT OF CARE 149 MG/DL (70-110)
[2019-03-20] MEDS: DOCUSATE SODIUM 283 MG/5 ML MINI-ENEMA PR SCH ×2 (17:30→18:10)
[2019-03-20] MEDS: INSULIN LISPRO 100 UNITS/ML SQ PRN ×2 (18:04→21:17)
[2019-03-20 21:06] VITALS: BP 118/67
[2019-03-20] MEDS: SENNA 187 MG TABLET PO SCH (21:10)
[2019-03-20] MEDS: ROSUVASTATIN CALCIUM 10 MG TABLET PO SCH (21:10)
[2019-03-20] MEDS: TAMSULOSIN HCL 0.4 MG CAPSULE PO SCH (21:10)
[2019-03-20] MEDS: PANTOPRAZOLE SODIUM 40 MG DR TABLET PO SCH (21:10)
[2019-03-20] MEDS: INSULIN GLARGINE,HUM.REC.ANLOG 100 UNITS/ML SQ SCH (21:17)
[2019-03-20 22:45] LABS: GLUCOMETER DEV NAME(LOC) 2WR.2; GLUCOSE,POINT OF CARE 145 MG/DL (70-110)
[2019-03-21] VITALS: BP 103/52
[2019-03-21 06:40] LABS: GLUCOMETER DEV NAME(LOC) 2WR.1B; GLUCOSE,POINT OF CARE 89 MG/DL (70-110)
[2019-03-21] MEDS: FERROUS SULFATE 325 MG EC TABLET PO SCH (07:30)
[2019-03-21] MEDS: ASPIRIN 81 MG EC TABLET PO SCH (07:30)
[2019-03-21 09:33] VITALS: BP 147/73
[2019-03-21] MEDS: AmLODIPine BESYLATE 10 MG TABLET PO SCH (09:49)
[2019-03-21] MEDS: 0.9% SODIUM CHLORIDE 10 ML SYRINGE IVP SCH ×2 (09:49→16:07)
[2019-03-21] MEDS: LACTOBAC ACID/BULG/BIFID/THERM TABLET PO SCH ×4 (09:49→20:52)
[2019-03-21] MEDS: FINASTERIDE 5 MG TABLET PO SCH (09:49)
[2019-03-21] MEDS: DOCUSATE SODIUM 100 MG CAPSULE PO SCH ×2 (09:49→20:52)
[2019-03-21] MEDS: APIXABAN 2.5 MG TABLET PO SCH ×2 (09:49→20:52)
[2019-03-21] MEDS: LevETIRAcetam 500 MG TABLET PO SCH ×2 (09:49→20:53)
[2019-03-21] MEDS: METOPROLOL TARTRATE 50 MG TABLET PO SCH ×2 (09:49→20:52)
[2019-03-21] MEDS: BETHANECHOL CHLORIDE 25 MG TABLET PO SCH ×2 (09:50→20:52)
[2019-03-21] MEDS: ACETAMINOPHEN 325 MG TABLET PO SCH (09:50)
[2019-03-21] MEDS: MULTIVITAMINS WITH MINERALS, THERAPEUTIC TABLET PO SCH (09:50)
[2019-03-21 12:37] LABS: GLUCOMETER DEV NAME(LOC) 2WR.2; GLUCOSE,POINT OF CARE 102 MG/DL (70-110)
[2019-03-21 16:00] VITALS: BP 111/63
[2019-03-21] MEDS: CefoTEtan DISOD 2 GM/DEXTROSE 50 ML IV SCH (16:08)
[2019-03-21 18:32] LABS: GLUCOMETER DEV NAME(LOC) 2WR.2; GLUCOSE,POINT OF CARE 108 MG/DL (70-110)
[2019-03-21] MEDS: SENNA 187 MG TABLET PO SCH (20:52)
[2019-03-21] MEDS: ROSUVASTATIN CALCIUM 10 MG TABLET PO SCH (20:52)
[2019-03-21] MEDS: TAMSULOSIN HCL 0.4 MG CAPSULE PO SCH (20:52)
[2019-03-21] MEDS: PANTOPRAZOLE SODIUM 40 MG DR TABLET PO SCH (20:52)
[2019-03-21] MEDS: INSULIN GLARGINE,HUM.REC.ANLOG 100 UNITS/ML SQ SCH (21:06)
[2019-03-21] MEDS: INSULIN LISPRO 100 UNITS/ML SQ PRN (21:06)
[2019-03-22 04:30] VITALS: BP 125/69
[2019-03-22] MEDS: 0.9% SODIUM CHLORIDE 10 ML SYRINGE IVP SCH ×3 (05:34→16:15)
[2019-03-22 05:42] LABS: GLUCOMETER DEV NAME(LOC) 2WR.1B; GLUCOSE,POINT OF CARE 159 MG/DL (70-110)
[2019-03-22 06:27] LABS: GLUCOMETER DEV NAME(LOC) 2WR.2; GLUCOSE,POINT OF CARE 86 MG/DL (70-110)
[2019-03-22 07:48] LABS: HEMATOCRIT 34.8 % (41-53); HEMOGLOBIN 11.5 g/dL (13.5-17.5); MEAN CORPUSCULAR HEMOGLOBIN 30.9 pg (26.0-34.0); MEAN CORPUSCULAR HGB CONC 33.1 G/dL (31.0-37.0); MEAN CORPUSCULAR VOLUME 93 fL (80-100); PLATELET COUNT (AUTO) 502 K/uL (150-450); RED BLOOD CELL COUNT(AUTO) 3.73 MIL/uL (4.50-5.90)
[2019-03-22 08:01] VITALS: BP 118/70
[2019-03-22 08:11] LABS: ALBUMIN 2.7 g/dL (3.4-5.0); BILIRUBIN,TOTAL 0.4 mg/dL (0.1-1.0); CALCIUM, TOTAL 8.9 mg/dL (8.8-10.5); CREATININE 1.53 mg/dL (0.60-1.30); POTASSIUM 4.1 mmol/L (3.5-5.1); TOTAL PROTEIN, SERUM 7.5 g/dL (6.4-8.2)
[2019-03-22] MEDS: LACTOBAC ACID/BULG/BIFID/THERM TABLET PO SCH ×4 (08:11→21:09)
[2019-03-22] MEDS: MULTIVITAMINS WITH MINERALS, THERAPEUTIC TABLET PO SCH (08:12)
[2019-03-22] MEDS: METOPROLOL TARTRATE 50 MG TABLET PO SCH ×2 (08:12→21:09)
[2019-03-22] MEDS: APIXABAN 2.5 MG TABLET PO SCH ×2 (08:12→21:09)
[2019-03-22] MEDS: FERROUS SULFATE 325 MG EC TABLET PO SCH (08:12)
[2019-03-22] MEDS: DOCUSATE SODIUM 100 MG CAPSULE PO SCH ×2 (08:12→21:09)
[2019-03-22] MEDS: BETHANECHOL CHLORIDE 25 MG TABLET PO SCH ×2 (08:12→21:10)
[2019-03-22] MEDS: ASPIRIN 81 MG EC TABLET PO SCH (08:12)
[2019-03-22] MEDS: LevETIRAcetam 500 MG TABLET PO SCH ×2 (08:12→21:09)
[2019-03-22] MEDS: AmLODIPine BESYLATE 10 MG TABLET PO SCH (08:12)
[2019-03-22] MEDS: FINASTERIDE 5 MG TABLET PO SCH (08:12)
[2019-03-22 08:38] LABS: ERYTHROCYTE SEDIMENTATION RATE 70 MM/HR (0-15)
[2019-03-22 09:36] LABS: BAND NEUTROPHILS % (MANUAL) 1 % (0-5); EOSINOPHILS % (MANUAL) 3 % (1-6); LYMPHOCYTES % (MANUAL) 32 % (22-44); MONOCYTES % (MANUAL) 4 % (2-9); SEGMENTED NEUTROPHILS % 60 % (40-70)
[2019-03-22] MEDS: ACETAMINOPHEN 325 MG TABLET PO PRN (10:19)
[2019-03-22 14:40] LABS: GLUCOMETER DEV NAME(LOC) 2WR.2; GLUCOSE,POINT OF CARE 85 MG/DL (70-110)
[2019-03-22] MEDS ORDERED: SODIUM CHLORIDE 0.9% 100 ML ONE (15:34)
[2019-03-22 16:01] VITALS: BP 123/70
[2019-03-22] MEDS: CefoTEtan DISOD 2 GM/DEXTROSE 50 ML IV SCH (16:15)
[2019-03-22 20:45] LABS: GLUCOMETER DEV NAME(LOC) 2WR.1B; GLUCOSE,POINT OF CARE 113 MG/DL (70-110)
[2019-03-22] MEDS: SENNA 187 MG TABLET PO SCH (21:09)
[2019-03-22] MEDS: PANTOPRAZOLE SODIUM 40 MG DR TABLET PO SCH (21:09)
[2019-03-22] MEDS: TAMSULOSIN HCL 0.4 MG CAPSULE PO SCH (21:09)
[2019-03-22] MEDS: ROSUVASTATIN CALCIUM 10 MG TABLET PO SCH (21:09)
[2019-03-22] MEDS: INSULIN GLARGINE,HUM.REC.ANLOG 100 UNITS/ML SQ SCH (21:14)
[2019-03-22 23:50] LABS: GLUCOMETER DEV NAME(LOC) 2WR.1B; GLUCOSE,POINT OF CARE 123 MG/DL (70-110)
[2019-03-23] VITALS: BP 127/71
[2019-03-23 05:45] LABS: GLUCOMETER DEV NAME(LOC) 2WR.2; GLUCOSE,POINT OF CARE 86 MG/DL (70-110)
[2019-03-23] MEDS: 0.9% SODIUM CHLORIDE 10 ML SYRINGE IVP SCH ×4 (08:00→23:03)
[2019-03-23 08:01] VITALS: BP 123/70
[2019-03-23] MEDS: ASPIRIN 81 MG EC TABLET PO SCH (08:16)
[2019-03-23] MEDS: LACTOBAC ACID/BULG/BIFID/THERM TABLET PO SCH ×4 (08:16→20:09)
[2019-03-23] MEDS: MULTIVITAMINS WITH MINERALS, THERAPEUTIC TABLET PO SCH (08:16)
[2019-03-23] MEDS: LevETIRAcetam 500 MG TABLET PO SCH ×2 (08:16→20:09)
[2019-03-23] MEDS: APIXABAN 2.5 MG TABLET PO SCH ×2 (08:16→20:08)
[2019-03-23] MEDS: DOCUSATE SODIUM 100 MG CAPSULE PO SCH ×2 (08:16→20:10)
[2019-03-23] MEDS: FERROUS SULFATE 325 MG EC TABLET PO SCH (08:16)
[2019-03-23] MEDS: FINASTERIDE 5 MG TABLET PO SCH (08:16)
[2019-03-23] MEDS: AmLODIPine BESYLATE 10 MG TABLET PO SCH (08:16)
[2019-03-23] MEDS: BETHANECHOL CHLORIDE 25 MG TABLET PO SCH ×2 (09:27→20:08)
[2019-03-23] MEDS: METOPROLOL TARTRATE 50 MG TABLET PO SCH ×2 (09:27→20:09)
[2019-03-23] MEDS: INSULIN LISPRO 100 UNITS/ML SQ PRN (12:52)
[2019-03-23 15:16] LABS: GLUCOMETER DEV NAME(LOC) 2WR.2; GLUCOSE,POINT OF CARE 145 MG/DL (70-110)
[2019-03-23 15:36] VITALS: BP 121/73
[2019-03-23] MEDS: CefoTEtan DISOD 2 GM/DEXTROSE 50 ML IV SCH (16:41)
[2019-03-23 18:16] LABS: GLUCOMETER DEV NAME(LOC) 2WR.1B; GLUCOSE,POINT OF CARE 98 MG/DL (70-110)
[2019-03-23 20:00] VITALS: BP 120/67
[2019-03-23] MEDS: ROSUVASTATIN CALCIUM 10 MG TABLET PO SCH (20:08)
[2019-03-23] MEDS: TAMSULOSIN HCL 0.4 MG CAPSULE PO SCH (20:08)
[2019-03-23] MEDS: PANTOPRAZOLE SODIUM 40 MG DR TABLET PO SCH (20:09)
[2019-03-23] MEDS: SENNA 187 MG TABLET PO SCH (20:10)
[2019-03-23] MEDS: INSULIN GLARGINE,HUM.REC.ANLOG 100 UNITS/ML SQ SCH (20:24)
[2019-03-23 21:11] LABS: GLUCOMETER DEV NAME(LOC) 2WR.1B; GLUCOSE,POINT OF CARE 111 MG/DL (70-110)
[2019-03-23 23:34] VITALS: BP 109/62
[2019-03-24] VITALS: BP 109/62
[2019-03-24 06:06] LABS: GLUCOMETER DEV NAME(LOC) 2WR.1B; GLUCOSE,POINT OF CARE 91 MG/DL (70-110)
[2019-03-24 08:01] VITALS: BP 120/70
[2019-03-24] MEDS: APIXABAN 2.5 MG TABLET PO SCH ×2 (08:24→20:23)
[2019-03-24] MEDS: FERROUS SULFATE 325 MG EC TABLET PO SCH (08:24)
[2019-03-24] MEDS: ASPIRIN 81 MG EC TABLET PO SCH (08:25)
[2019-03-24] MEDS: DOCUSATE SODIUM 100 MG CAPSULE PO SCH ×2 (08:25→20:22)
[2019-03-24] MEDS: BETHANECHOL CHLORIDE 25 MG TABLET PO SCH ×2 (08:25→20:28)
[2019-03-24] MEDS: LevETIRAcetam 500 MG TABLET PO SCH ×2 (08:25→20:22)
[2019-03-24] MEDS: FINASTERIDE 5 MG TABLET PO SCH (08:25)
[2019-03-24] MEDS: MULTIVITAMINS WITH MINERALS, THERAPEUTIC TABLET PO SCH (08:25)
[2019-03-24] MEDS: AmLODIPine BESYLATE 10 MG TABLET PO SCH (08:26)
[2019-03-24] MEDS: LACTOBAC ACID/BULG/BIFID/THERM TABLET PO SCH ×4 (08:26→20:22)
[2019-03-24] MEDS: 0.9% SODIUM CHLORIDE 10 ML SYRINGE IVP SCH ×2 (08:26→17:09)
[2019-03-24] MEDS: METOPROLOL TARTRATE 50 MG TABLET PO SCH ×2 (08:26→20:28)
[2019-03-24 13:25] LABS: GLUCOMETER DEV NAME(LOC) 2WR.2; GLUCOSE,POINT OF CARE 111 MG/DL (70-110)
[2019-03-24 16:41] VITALS: BP 122/67
[2019-03-24 18:02] LABS: GLUCOMETER DEV NAME(LOC) 2WR.2; GLUCOSE,POINT OF CARE 108 MG/DL (70-110)
[2019-03-24] MEDS: PANTOPRAZOLE SODIUM 40 MG DR TABLET PO SCH (20:22)
[2019-03-24] MEDS: SENNA 187 MG TABLET PO SCH (20:22)
[2019-03-24] MEDS: TAMSULOSIN HCL 0.4 MG CAPSULE PO SCH (20:22)
[2019-03-24 20:25] VITALS: BP 137/76
[2019-03-24] MEDS: ROSUVASTATIN CALCIUM 10 MG TABLET PO SCH (20:30)
[2019-03-24] MEDS: INSULIN GLARGINE,HUM.REC.ANLOG 100 UNITS/ML SQ SCH (20:32)
[2019-03-24 21:46] LABS: GLUCOMETER DEV NAME(LOC) 2WR.1B; GLUCOSE,POINT OF CARE 115 MG/DL (70-110)
[2019-03-25] VITALS: BP 136/73
[2019-03-25 05:50] LABS: APPEARANCE,URINE CLEAR (CLEAR); BILIRUBIN,URINE NEGATIVE (NEGATIVE); GLUCOSE, URINE (UA) NEGATIVE (NEGATIVE); KETONES,URINE NEGATIVE (NEGATIVE); LEUKOCYTE ESTERASE ,URINE NEGATIVE (NEGATIVE); NITRATE,URINE NEGATIVE (NEGATIVE); OCCULT BLOOD,URINE NEGATIVE (NEGATIVE); PROTEIN,URINE NEGATIVE (NEGATIVE); UROBILINOGEN,URINE 0.2 mg/dL (<=1.0)
[2019-03-25 06:27] LABS: GLUCOMETER DEV NAME(LOC) 2WR.1B; GLUCOSE,POINT OF CARE 87 MG/DL (70-110)
[2019-03-25] MEDS: 0.9% SODIUM CHLORIDE 10 ML SYRINGE IVP SCH ×3 (08:00→16:00)
[2019-03-25 08:01] VITALS: BP 112/69
[2019-03-25] MEDS: FERROUS SULFATE 325 MG EC TABLET PO SCH (08:23)
[2019-03-25] MEDS: LACTOBAC ACID/BULG/BIFID/THERM TABLET PO SCH ×4 (08:23→21:04)
[2019-03-25] MEDS: FINASTERIDE 5 MG TABLET PO SCH (08:23)
[2019-03-25] MEDS: DOCUSATE SODIUM 100 MG CAPSULE PO SCH ×2 (08:23→21:04)
[2019-03-25] MEDS: METOPROLOL TARTRATE 50 MG TABLET PO SCH ×2 (08:23→21:04)
[2019-03-25] MEDS: AmLODIPine BESYLATE 10 MG TABLET PO SCH (08:23)
[2019-03-25] MEDS: APIXABAN 2.5 MG TABLET PO SCH ×2 (08:24→21:04)
[2019-03-25] MEDS: LevETIRAcetam 500 MG TABLET PO SCH ×2 (08:24→21:04)
[2019-03-25] MEDS: MULTIVITAMINS WITH MINERALS, THERAPEUTIC TABLET PO SCH (08:24)
[2019-03-25] MEDS: ASPIRIN 81 MG EC TABLET PO SCH (08:24)
[2019-03-25] MEDS: BETHANECHOL CHLORIDE 25 MG TABLET PO SCH ×2 (08:24→21:04)
[2019-03-25 13:30] LABS: GLUCOMETER DEV NAME(LOC) 2WR.2; GLUCOSE,POINT OF CARE 124 MG/DL (70-110)
[2019-03-25 18:22] LABS: GLUCOMETER DEV NAME(LOC) 2WR.2; GLUCOSE,POINT OF CARE 117 MG/DL (70-110)
[2019-03-25 21:00] VITALS: BP 129/65
[2019-03-25] MEDS: ROSUVASTATIN CALCIUM 10 MG TABLET PO SCH (21:04)
[2019-03-25] MEDS: PANTOPRAZOLE SODIUM 40 MG DR TABLET PO SCH (21:04)
[2019-03-25] MEDS: SENNA 187 MG TABLET PO SCH (21:04)
[2019-03-25] MEDS: TAMSULOSIN HCL 0.4 MG CAPSULE PO SCH (21:04)
[2019-03-25] MEDS: INSULIN GLARGINE,HUM.REC.ANLOG 100 UNITS/ML SQ SCH (21:12)
[2019-03-25 21:41] LABS: GLUCOMETER DEV NAME(LOC) 2WR.2; GLUCOSE,POINT OF CARE 102 MG/DL (70-110)
[2019-03-26] MEDS ORDERED: INSLAN SQ (04:26)
[2019-03-26] MEDS ORDERED: DSS100 PO (04:26)
[2019-03-26 05:30] VITALS: BP 113/64
[2019-03-26 06:11] LABS: GLUCOMETER DEV NAME(LOC) 2WR.2; GLUCOSE,POINT OF CARE 94 MG/DL (70-110)
[2019-03-26 08:00] VITALS: BP 123/69
[2019-03-26] MEDS: LevETIRAcetam 500 MG TABLET PO SCH (08:36)
[2019-03-26] MEDS: FERROUS SULFATE 325 MG EC TABLET PO SCH (08:36)
[2019-03-26] MEDS: FINASTERIDE 5 MG TABLET PO SCH (08:36)
[2019-03-26] MEDS: LACTOBAC ACID/BULG/BIFID/THERM TABLET PO SCH (08:36)
[2019-03-26] MEDS: ASPIRIN 81 MG EC TABLET PO SCH (08:36)
[2019-03-26] MEDS: MULTIVITAMINS WITH MINERALS, THERAPEUTIC TABLET PO SCH (08:36)
[2019-03-26] MEDS: BETHANECHOL CHLORIDE 25 MG TABLET PO SCH (08:37)
[2019-03-26] MEDS: METOPROLOL TARTRATE 50 MG TABLET PO SCH (08:37)
[2019-03-26] MEDS: AmLODIPine BESYLATE 10 MG TABLET PO SCH (08:37)
[2019-03-26] MEDS: DOCUSATE SODIUM 100 MG CAPSULE PO SCH (08:37)
[2019-03-26] MEDS: APIXABAN 2.5 MG TABLET PO SCH (08:37)
[2019-03-26 18:00] LABS: GLUCOMETER DEV NAME(LOC) 2WR.1B; GLUCOSE,POINT OF CARE 107 MG/DL (70-110)
== END 2019-03-26 12:45 | disposition home health service (06) | DRG 71 ==
LOC: 2WR 16:50
PROVIDERS: ADMIT Physical Medicine & Rehabilitation
DX: G93.41 Metabolic encephalopathy (principal); N17.9 Acute kidney failure, unspecified; N13.6 Pyonephrosis; K82.0 Obstruction of gallbladder; K81.0 Acute cholecystitis; I82.411 Acute embolism and thrombosis of right femoral vein; E78.5 Hyperlipidemia, unspecified; G40.909 Epilepsy, unspecified, not intractable, without status epilepticus; I10 Essential (primary) hypertension; E11.9 Type 2 diabetes mellitus without complications; B96.20 Unspecified Escherichia coli [E. coli] as the cause of diseases classified elsewhere; B96.89 Other specified bacterial agents as the cause of diseases classified elsewhere; D64.9 Anemia, unspecified; D69.6 Thrombocytopenia, unspecified; E11.59 Type 2 diabetes mellitus with other circulatory complications; E11.69 Type 2 diabetes mellitus with other specified complication; G47.00 Insomnia, unspecified; Z16.12 Extended spectrum beta lactamase (ESBL) resistance; N40.0 Benign prostatic hyperplasia without lower urinary tract symptoms; N31.9 Neuromuscular dysfunction of bladder, unspecified; M21.619 Bunion of unspecified foot; M20.40 Other hammer toe(s) (acquired), unspecified foot; L85.3 Xerosis cutis; L60.3 Nail dystrophy; Z82.49 Family history of ischemic heart disease and other diseases of the circulatory system; Z79.899 Other long term (current) drug therapy; Z83.3 Family history of diabetes mellitus; Z86.718 Personal history of other venous thrombosis and embolism; Z87.440 Personal history of urinary (tract) infections; Z87.442 Personal history of urinary calculi; Z79.82 Long term (current) use of aspirin; Z79.4 Long term (current) use of insulin; Z79.01 Long term (current) use of anticoagulants; Z78.9 Other specified health status; Z28.21 Immunization not carried out because of patient refusal
CPT/HCPCS: 76700; 76705; 82271; 83036; 83540; 83550; 84154; 84550; 85007; 85045; 85651; 87040; 87081; 87086; 90732; 92507; 92508; 92523; 92526; 93970; 97110; 97112; 97116; 97150; 97163; 97167; 97530; 97535; 99366; J0696; J1650; J1815; J3490; J7050